=== PATIENT | female | born 1935 | race Caucasian/White ===

== ENCOUNTER → 2019-07-28 08:41 | Day surgery (SDC) | payer MEDICARE, BC, SELFPAY ==
--- NOTE | 2019-07-28 08:58 | CT_ITS ---
WS: [id number] CT CHEST WITHOUT INTRAVENOUS CONTRAST HISTORY: LUNG MASS; PT REFUSED BX; LIMITED CHEST TECHNIQUE: Contiguous 5 mm axial imaging performed on the thorax. Coronal and sagittal reformats are submitted. All CT scans at [facility] use at least one of these dose optimization techniq ues: automated exposure control; mA and/or kV adjustment per patient size (includes targeted exams wh ere dose is matched to clinical indication); or iterative reconstruction. CONTRAST: None DLP: 275.81 mGy.cm COMPARISON: 03/25/2019 Patient presented for biopsy of the LEFT upper lobe mass. After consulting patient for the procedure patient has decided not to continue with this procedure. Patient indicated she is not a candidate for chemotherapy or radiation therefore has decided not to proceed with biopsy. No significant change in size of the spiculated nodule in the LEFT upper lobe measuring [address]/CT chest wo con [id number] IMPRESSION: 1. Patient has decided not to proceed with the LEFT upper lobe nodule biopsy. 2. Stable spiculated nodule LEFT upper lobe. 3. Chronic emphysema.
[2019-07-28] MEDS: sodium chloride 0.9% 1,000 ML 30 ML (09:42)
[2019-07-28 10:25] LABS: INR 1.07 (0.8-1.2); Partial Thromboplastin Time 29.7 SECONDS (23.9-36.7)
--- NOTE | 2019-07-28 11:15 | SUR.OPER ---
DR. NORMAN DISCUSSED RISKS AND BENEFITS WITH PATIENT ALSO SPOKE WITH DAUGHTER OF PATIENT. MUTUAL DECISION WAS MADE TO NOT GO THROUGH WITH THE CT BIOPSY OF THE LUNG.
== END ==
PROVIDERS: Family Provider Nurse Practitioner; PCP Nurse Practitioner; Visit Provider Thoracic Surgery (Cardiothoracic Vascular Surgery)
DX: Z53.9 Procedure and treatment not carried out, unspecified reason (principal); R91.8 Other nonspecific abnormal finding of lung field
CPT/HCPCS: 36415; 71250; 77012; 85610; 85730; J2250; J3010; J7030

== ENCOUNTER → 2019-10-25 13:53 | Outpatient (BNVA) | payer MEDICARE, BC, SELFPAY | PROVIDERS: Family Provider Nurse Practitioner; PCP Nurse Practitioner; Visit Provider Nurse Practitioner | DX: J44.9 Chronic obstructive pulmonary disease, unspecified (principal); I27.20 Pulmonary hypertension, unspecified | CPT/HCPCS: 80053; 85025 ==